=== PATIENT | male | born 1980 | race Caucasian/White ===

== ENCOUNTER 2024-04-03 09:15 | Emergency (ER) | payer MEDICARE ==
[~2024-04-03] VITALS: Ht 167.6 cm; Wt 92.5 kg
--- NOTE | 2024-04-03 10:07 | ERN ---
ED Note History of Present Illness Stated Complaint: FALL Chief Complaint: Mechanical Fall Time Seen by MD: 10:02 Dictation: Patient is a 43-year-old male here with complaints of midline lumbar pain that hurts worse when he coughs onset yesterday. He states he was here staying at a local hotel when he slipped down some steps and landed on his butt. No change in bowel or bladder function, no radiculopathy or sciatica. He denies any history of prior back injuries or surgeries. No primary care doctor locally Allergies: Coded Allergies: erythromycin base (Unverified Allergy, Unknown, 04/03/24) sumatriptan (Unverified Allergy, Unknown, 04/03/24) Past Medical History Past Medical History: Diabetes-Type II Additional Past Medical Hx: HERNIATED DISK Surgical History: Tonsillectomy Surgical History Other: HERNIA REPAIR RN Note Reviewed/Agreed w/PFSH: Yes Review of System Dictation CONSTITUTIONAL: NEGATIVE EXCEPT FOR HPI HEAD/FACE: NEGATIVE EXCEPT FOR HPI EENT: NEGATIVE EXCEPT FOR HPI RESPIRATORY: NEGATIVE EXCEPT FOR HPI GASTROINTESTINAL/ABDOMINAL: NEGATIVE EXCEPT FOR HPI GENITOURINARY: NEGATIVE EXCEPT FOR HPI MUSCULOSKELETAL: NEGATIVE EXCEPT FOR HPI LUMBOSACRAL TENDERNESS WITH PALPATION INTEGUMENTARY: NEGATIVE EXCEPT FOR HPI NEUROLOGICAL/PSYCH: NEGATIVE EXCEPT FOR HPI HEMATOLOGIC/LYMPHATIC: NEGATIVE EXCEPT FOR HPI ALL SYSTEMS NEGATIVE, EXCEPT NOTED ABOVE. 13 POINT REVIEW OF SYSTEMS ASSESSED AND ALL NEGATIVE EXCEPT FOR ABOVE. Initial Vital Sign VS Vital Signs Date Time Temp Pulse Resp B/P (MAP) Pulse Ox O2 Delivery O2 Flow Rate FiO2 04/03/24 09:18 97.9 111 18 118/81 100 Room Air* 0 21 Physical Exam Dictation VITAL SIGNS REVIEWED GENERAL APPEARANCE: ALERT, ORIENTED X 3, MILD ACUTE DISTRESS, WELL DEVELOPED, NOURISHED. HEAD AND FACE: NON-TRAUMATIC. EYES: PERRL, PINK CONJUNCTIVAS, EYELID NO TRAUMA, ANTERIOR CHAMBER WITH ARCUS SENILIS. EARS: PINNAS INTACT AND NO SIGNS OF TRAUMA OR ERYTHEMA EAR CANALS CLEAR AND NO DISCHARGE TM NO ERYTHEMA NOSE: NO DISCHARGE, NO BLEEDING. OROPHARYNX: MOUTH NORMAL, TONGUE PINK, PHARYNX CLEAR,NO ERYTHEMA, TONSILS NO EXUDATES, NO ABSCESSES NOTED, MUCOUS MEMBRANE MOIST NECK: SUPPLE, NON-TENDER, NO THYROMEGALY, NO MASSES, NO JVD, NO BRUITS BREAST:DEFERRED CHEST:NO TENDERNESS, NO CREPITUS, NO PARADOXICAL MOVEMENT, NO RETRACTIONS LUNGS:CLEAR, WELL-VENTILATED, SYMMETRIC, NO RALES, NO WHEEZING, NO RHONCHI, NO STRIDOR, GOOD BREATH SOUNDS BILATERALLY HEART: REGULAR RATE, REGULAR RHYTHM, NO MURMUR, NO GALLOPS VASCULAR: NO PERIPHERAL EDEMA, ABDOMEN: SOFT, POSITIVE BOWEL SOUNDS, NONDISTENDED, NO GUARDING, NONTENDER, NO REBOUND, NO MASSES NO HEPATOMEGALY, NO SPLENOMEGALY, NO SCANLON'S SIGN, NO HERNIAS. RECTAL: DEFERRED GENITAL: DEFERRED NEUROLOGICAL: NORMAL SPEECH, MOTOR FUNCTION INTACT, SENSORY FUNCTION INTACT MUSCULOSKELETAL: NECK NONTENDER, FULL RANGE OF MOTION, DIFFUSE LUMBOSACRAL TENDERNESS, FULL RANGE OF MOTION, NO MIDLINE SPINE PAIN OR STEP-OFFS NEGATIVE STRAIGHT LEG RAISE BILATERALLY 10 EXTREMITIES: NONTENDER, FULL RANGE OF MOTION SKIN: COLOR PINK, DRY, NO TURGOR, NO RASH, NO LACERATIONS, NO ABRASIONS, NO CONTUSIONS. NO LUMBAR SACRAL CONTUSION LYMPHATIC: DEFERRED Results (Laboratory/Radiology) Laboratory/Radiology 1035, LUMBAR X-RAY NEGATIVE Labs Reviewed?: Yes ED Course ED Course Orders Procedure Category Date Status Time Lumbar Spine 2-3vws RAD 04/03/24 Taken 10:05 Ketorolac 60mg/2ml PHA 04/03/24 Complete (Toradol 60mg/2ml) 10:30 Current Medications Medications (Trade) Dose Ordered Sig/Flora Route PRN Reason Start Time Stop Time Status Last Admin Dose Admin Ketorolac Tromethamine (toRADol 60MG/ 2ML) 60 mg ONCE ONCE IM 04/03/24 10:30 04/03/24 10:31 DC 04/03/24 10:23 Vital Signs Date Time Temp Pulse Resp B/P (MAP) Pulse Ox O2 Delivery O2 Flow Rate FiO2 04/03/24 09:18 97.9 111 20 118/81 100 Room Air 04/03/24 09:18 97.9 111 18 118/81 100 Room Air* 0 21 1037 PATIENT STATES FEELS BETTER AFTER TORADOL WE WILL BE DISCHARGED HOME WITH IBUPROFEN AND FLEXERIL AND A LIST OF THE LOCAL DOCTORS TO FOLLOW UP WITH THE NEXT 2-3 DAYS. Medical Decision Making MDM MEDICAL DISCHARGE MAKING BASED ON EMPIRIC TREATMENT FOR BACK PAIN AND AN X-RAY OF THE LUMBAR BACK LUMBAR X-RAY NEGATIVE PATIENT DISCHARGED HOME WITH IBUPROFEN AND FLEXERIL TOLD TO SEE HIS PRIMARY CARE DOCTOR IN 2-3 DAYS AND GIVEN A LIST OF LOCAL DOCTORS DX & DISP Disposition: Discharge Departure Impression: Primary Impression: Back contusion Additional Impression: Fall Condition: Stable Scripts Cyclobenzaprine HCl (Cyclobenzaprine HCl) 10 Mg Tablet 1 TAB PO TID for muscle spasms for 10 Days, #30 TAB 0 Refills Prov: JUAN MCKEON TACO MAKER 04/03/24 Ibuprofen (Ibuprofen 800 mg Tab) 800 Mg Tab 800 MG PO Q8H PRN for fever or pain, #30 TAB 0 Refills Prov: JUAN MCKEON TACO MAKER 04/03/24 Additional Instructions: FOLLOW-UP WITH PRIMARY CARE PROVIDER IN 1 TO 2 DAYS. TAKE MEDICATIONS DIRECTED HERE IN THE EMERGENCY ROOM. OKAY TO CONTINUE HOME MEDICATIONS UNLESS OTHERWISE DISCUSSED DURING YOUR VISIT IN THE EMERGENCY ROOM TODAY. RETURN TO YOUR NEAREST EMERGENCY ROOM IF SYMPTOMS WORSEN OR IF THERE IS NO IMPROVEMENT. CALL 911 IF YOU NEED IMMEDIATE ASSISTANCE. TAKE TYLENOL OR MOTRIN GITH-MBY-NYSYOLS NEEDED AND IF NO CONTRAINDICATIONS ARE PRESENT. INCREASE ORAL HYDRATION. A WOUND CULTURE OR URINE CULTURE WAS ORDERED HERE IN THE EMERGENCY ROOM DEPARTMENT PLEASE FOLLOW-UP WITH PRIMARY CARE PROVIDER AND ADVISE THEM TO GET REPEAT PORTS FROM OUR FACILITY. IF YOU HAD ANY GOLDEN WRAP/SPLINTS THAT WERE APPLIED HERE, PLEASE DO NOT REMOVE THEM UNTIL YOU SEE YOUR PRIMARY CARE OR SPECIALTY. WARM COMPRESSES TO PAIN THREE TO 4 TIMES A DAY. TAKE IBUPROFEN AND FLEXERIL EVERY8 HOURS WITH FOOD FOR THE NEXT THREE DAYS. NO LIFTING GREATER THAN 10 LB UNTIL CLEARED BY YOUR LOCAL DOCTOR OR SEE ONE OF THE DOCTORS ON THE LIST PROVIDED YOU. Referrals: SELF,REFERRAL (PCP) Time of Disposition: 10:38 I have reviewed the case, and I agree with, Diagnosis and Plan JUAN MCKEON NP Apr 03, 2024 10:07
[2024-04-03] MEDS: ketOROlac 60 MG VIAL (30MG/ML) IM ONE (10:23)
[2024-04-03] MEDS ORDERED: IBUP-2077 PO (10:40)
[2024-04-03] MEDS ORDERED: CYCL-309 PO (10:40)
[2024-04-03 10:45] VITALS: BP 116/78; PULSE 88; RESP 18; TEMP 97.9; O2SAT 100
--- NOTE | 2024-04-03 14:48 | HMCIMG ---
LUMBAR SPINE RADIOGRAPHS - 2-3 VIEWS INDICATION: Back pain after fall yesterday COMPARISON: None FINDINGS: AP, lateral, and coned-down lateral views. Normal lordotic curvature of the lumbar spine is maintained. Five nonrib-bearing lumbar vertebral bodies are noted. No acute fracture or subluxation identified. Vertebral body heights are well-maintained. Disc spaces are well-preserved. Mild calcific plaque is noted along the abdominal aortic and iliac vessel robertson without aneurysmal dilation. IMPRESSION: No fracture or subluxation identified.
== END 2024-04-03 10:47 | disposition home or self-care (01) ==
LOC: EDH 09:15
DX: S20.229A Contusion of unspecified back wall of thorax, initial encounter (principal); E11.9 Type 2 diabetes mellitus without complications; Z88.1 Allergy status to other antibiotic agents; Z90.89 Acquired absence of other organs; Z98.890 Other specified postprocedural states; W01.0XXA Fall on same level from slipping, tripping and stumbling without subsequent striking against object, initial encounter; Y93.01 Activity, walking, marching and hiking; Y92.89 Other specified places as the place of occurrence of the external cause; Y99.8 Other external cause status
CPT/HCPCS: 99283; 72100; 96372; J1885